=== PATIENT | male | born 1945 | race Caucasian/White ===

== ENCOUNTER 2016-07-19 14:33 | Emergency (ER) | payer OTHER ==
[2016-07-19 15:22] VITALS: BP 134/64; PULSE 68; RESP 18; TEMP 98.2; O2SAT 95
--- NOTE | 2016-07-19 16:22 | UCPHY ---
H & P Time Seen by Provider: 07/19/16 16:16 Patient Type: New HPI/ROS: CHIEF COMPLAINT: Cat scratch HISTORY OF PRESENT ILLNESS: The patient is a 70 year old male presenting with cat scratch to left lower extremity that occurred 07/16/16. The cat is the patient's house cat. He complains of multiple scratches to the lateral aspects of both sides of the aspect of the left calf. But, it is the area in the post aspect that has gotten worse with time and that is sensitive. He notes no red streaks or adenopathy.He denies fever, vomiting, or diarrhea. Cat is helayhy and UTD, his duaghter's he too is UTD REVIEW OF SYSTEMS: Constitutional: No fever, no chills. Eyes: No discharge Gastrointestinal: No nausea vomiting or diarrhea. No abdominal pain. Musculoskeletal: No back pain. Skin: 4 scratch curtis to medial and lateral sides of calf and a solitary area on the posterior calf. Neurological: NO numbness or tingling or paresthesiasa Past Medical/Surgical History: Denies. Social History: . Smoking Status: Never smoked Physical Exam: General Appearance: Alert, no distress. Afebrile. Normal phonation. No respiratory distress. Neurological: Ox3. No motor weakness. Sensation intact. Gait nl. Skin: Warm and dry, areas on parallel abrasions c/w the scrtaches from the cat on both the medial and lateral aspects. Musculoskeletal: No joint swelling. Extremities: No lymphangitis, nor adenopathy. Post to the calf there is a 2cm necrotic center, mild surrounding erythema 4cm. Psychiatric: Normal affect. Constitutional: Initial Vital Signs Temperature (C) 36.8 C 07/19/16 15:19 Heart Rate 68 07/19/16 15:19 Respiratory Rate 18 07/19/16 15:19 Blood Pressure 134/64 H 07/19/16 15:19 O2 Sat (%) 95 07/19/16 15:19 O2 Delivery Mode Room Air Allergies/Adverse Reactions: No Known Allergies Allergy (Unverified 07/19/16 15:18) Home Medications: Medication Instructions Recorded ALPRAZolam 07/19/16 Amoxicillin/Clavulanate Pot 875 mg PO BID #20 tab 07/19/16 [Augmentin 875 MG TAB (*)] PARoxetine HCL 07/19/16 Medical Decision Making ED Course/Re-evaluation: No aspioration possitlbr. Differential Diagnosis: Differential diagnosis includes but is not limited to: Cellullitis, abscess, necrotic site, furnucule. Departure - Departure Disposition: Home, Routine, Self-Care Clinical Impression: Cat scratch, Cellulitis of leg without foot, left Condition: Good Instructions: Cat Scratch Disease (ED) Additional Instructions: I suggest wearing a dressing around the wound to keep the area clean, dry, and intact. Take time to elevate your leg, I suggest 1 hour several times a day. Please take the full course of antibiotics as prescribed. I suggest taking a probiotic simultaneously with the antibiotics. Also, use Tinactin powder or spray on the foot as there was a little fungus. Return to the Emergency Department if you develop, fever or increased pain, redness, or swelling to the area. Referrals: Sudhir Wilson MD [Primary Care Provider] - As per Instructions Prescriptions: Amoxicillin/Clavulanate Pot [Augmentin 875 MG TAB (*)] 875 mg PO BID #20 tab - PQRS PQRS Measurement: 134: Depression screening and followup, PRIME MD-PHQ2 (12 years and older) Over the last 2 weeks, how often have you been bothered by any of the following problems? 1. Feeling down, depressed, or hopeless? 2. Little interest or pleasure in doing things? [Patient answered no to both 1 and 2] [Patient answered yes to at least 1, referred to PCP for further evaluation.] [Not done because] [altered mental status] [patient refused] [critically ill.] 130: Documentation of medications. [Reviewed all patient medications, doses, route and frequency.] [Unable to obtain meds due to] [critical illness] [altered mental status] [ patient did not know]. 226: Do you smoke? [No.] [Yes, counseled to stop.] 47: 65 and older: Advanced care planning. Patient designates surrogate decision maker as [parent] [spouse] [ ]. [Patient refused.] [Patient has advanced directive.] 51: 18 years old and older with diagnosis of COPD, spirometry performance. [Patient has no history of COPD] [Spirometry not performed; equipment not available.] 52: 18 years old and older with COPD and symptoms of COPD or FEV1<60% predicted prescribed a B Agonist. [Patient has no history of COPD] [Spirometry not performed; equipment not available.] Report Scribed for: Barron Bello Report Scribed by: Jacey Knight Date of Report: 07/19/16 Time of Report: 16:22
--- NOTE | 2016-07-19 16:29 | EDPHY ---
General Time Seen by Provider: 07/19/16 16:16 - History History Review: I reviewed the patient's medical records Smoking Status: Never smoked - Objective Vital Signs: Initial Vital Signs Temperature (C) 36.8 C 07/19/16 15:19 Heart Rate 68 07/19/16 15:19 Respiratory Rate 18 07/19/16 15:19 Blood Pressure 134/64 H 07/19/16 15:19 O2 Sat (%) 95 07/19/16 15:19 O2 Delivery Mode Room Air Allergies/Adverse Reactions: No Known Allergies Allergy (Unverified 07/19/16 15:18) Home Medications: Medication Instructions Recorded ALPRAZolam 07/19/16 Amoxicillin/Clavulanate Pot 875 mg PO BID #20 tab 07/19/16 [Augmentin 875 MG TAB (*)] PARoxetine HCL 07/19/16 Departure - Departure Disposition: Home, Routine, Self-Care Clinical Impression: Cat scratch, Cellulitis of leg without foot, left Condition: Good Instructions: Cat Scratch Disease (ED) Referrals: Sudhir Wilson MD [Primary Care Provider] - As per Instructions Prescriptions: Amoxicillin/Clavulanate Pot [Augmentin 875 MG TAB (*)] 875 mg PO BID #20 tab
== END 2016-07-19 16:46 | disposition home or self-care (01) ==
LOC: CED 14:33
DX: S80.812A Abrasion, left lower leg, initial encounter (principal); L03.116 Cellulitis of left lower limb; W55.03XA Scratched by cat, initial encounter
CPT/HCPCS: G0463-PO